=== PATIENT | male | born 2005 | race Caucasian/White ===

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

== ENCOUNTER 2025-02-15 07:08 | Emergency (ER) | payer OTHER, SELFPAY ==
[2025-02-15 07:12] VITALS: BP 145/93; PULSE 91; RESP 16; TEMP 36.8; O2SAT 100
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
[2025-02-15 08:15] VITALS: BP 145/93; PULSE 91; RESP 18; TEMP 36.8; O2SAT 100
--- OUTSIDE RECORDS SUMMARY | 2025-02-15 08:35 | XMS_ITS | Clinical Summary ---
Author Organization [facility] [employer] Address [address] [place] [address] Care Team Providers Care Home Insurance Agent Name Role Phone Unavailable Primary Care Provider Unavailabl e Source Comments [facility] [employer],non-owned Affiliates and Associated Physician Practices is amultiple site organization consisting of ambulatory clinics and hospital sitesin [place], [place], [place] and [place]. This disclosure is being madepursuant to the Care Everywhere program and may not contain all information available regarding this patient. Last updated 18.[facility] [employer] Allergies No known active allergies Medications * Be aware that medications may not be up to date on this document. Alwaysverify current medications with the patient. No known medications Active Problems Problem Noted Date Diagnosed Date Benzodiazepine overdose of undetermined intent 0 12/01/2019 Assessment & Plan (12/03/2019 6:29 PM CDT): Assessment: 14 year old with unclear past psychiatric history hospitalized due to toxic encephalopathy following intentional polysubstance ingestion (alcohol, xanax, marijuana, potentially other) with unclear intent. Patient medically cleared and tolerating diet well. MERRY decided that patient met criteria for inpatient psych. Plan: - Discharge to inpatient psych - Psych facility requested labs: Covid negative. CBC wnl. Assessment & Plan (12/02/2019 11:25 AM CDT): Assessment: 14 year old with unclear past psychiatric history hospitalized due to toxic encephalopathy following intentional polysubstance ingestion (alcohol, xanax, marijuana, potentially other) with unclear intent. Patient medically cleared and tolerating diet well. MERRY decided that patient met criteria for inpatient psych - [facility] in [place], [place]. Plan: - waiting for bed for inpatient psych placement - Psych facility requested labs: Covid negative. CBC wnl. -Obtain further history from family when they arrive. Alcohol intoxication 12/01/2019 Polysubstance overdose 12/01/2019 Marijuana intoxication 12/01/2019 Toxic encephalopathy 11/30/2019 Assessment & Plan (12/03/2019 6:28 PM CDT): Assessment: 14 year old with unclear past psychiatric history hospitalized due to toxic encephalopathy following intentional polysubstance ingestion (alcohol, xanax, marijuana, potentially other) with unclear intent. Patient medically cleared and tolerating diet well. Plan: - Discharge to inpatient psych - Psych facility requested labs: Covid negative. CBC wnl. - PRN zofran and ativan Assessment & Plan (12/02/2019 11:26 AM CDT): Assessment: 14 year old with unclear past psychiatric history hospitalized due to toxic encephalopathy following intentional polysubstance ingestion (alcohol, xanax, marijuana, potentially other) with unclear intent. Patient medically cleared and tolerating diet well. Plan: - waiting for bed for inpatient psych placement - Psych facility requested labs: Covid negative. CBC wnl. - PRN zofran and ativan - Strict I/O - cardio/resp monitoring - q4hr vitals Assessment & Plan (12/01/2019 4:41 PM CDT): Assessment: 14 year old with unclear past psychiatric history hospitalized due to toxic encephalopathy following intentional polysubstance ingestion (alcohol, xanax, marijuana, potentially other) with unclear intent. Patient medically cleared and tolerating diet well. MERRY decided that patient met criteria for inpatient psych - [facility] [place], [place]. Plan: - waiting for bed for inpatient psych placement - Psych facility requested labs: Covid pending. CBC wnl. - PRN zofran and ativan - Strict I/O - cardio/resp monitoring - q4hr vitals -Obtain further history from family when they arrive. Assessment & Plan (11/30/2019 9:16 PM CDT): Assessment: Patient is a 14 year old male who presents with alcohol intoxication and potentially other unknown substances with a ETOH 194 and +UDS of cannabinoids. Patient claims to have taken Xanax, but remaining UDS is negative. Negative for salicylates and tylenol. CMP: remarkable for Chloride of 114, Ca of 8.41. Patient did not respond to narcan. Patient is currently stable and receiving IVF in addition to the bolus in the ED. Patient in need of close monitoring, IVF, and psych consult. Plan: - admit to [facility] team - Dr. Bailey - MIRIAM @100ml/hr - PRN zofran and ativan - Strict I/O - cardio/resp monitoring - q4hr vitals - psych consult in the morning Social History Tobacco Use Types Packs/Day Years Used Date Smoking Tobacco: Every Day Smokeless Tobacco: Current Alcohol Use Standard Drinks/Week Comments Yes 0 (1 standard drink = 0.6 oz pur e alcohol) Sex and Gender Information Value Date Recorded Sex Assigned at Not on file Legal Sex Male 11:00 AM CDT Gender Identity Not on file Sexual Orientation Not on file Last Filed Vital Signs Vital Sign Reading Time Taken Comments Blood Pressure 104/62 12/03/2019 4:10 PM CDT Pulse 56 12/03/2019 4:10 PM CDT Temperature 36.6 C (97.9 F) 12/03/2019 4:10 PM CDT Respiratory Rate 18 12/03/2019 4:10 PM CDT Oxygen Saturation 98% 12/03/2019 4:10 PM CDT Inhaled Oxygen Concentration - - Weight 58.5 kg (128 lb 15 oz) 11/30/2019 1:09 PM CDT Height 170.2 cm (5' 7) 11/30/2019 1:09 PM CDT Body Mass Index 20.19 11/30/2019 1:09 PM CDT Plan of Treatment Health Maintenance Due Date Last Done Comments HIV SCREENING 11/10/2019 HPV VACCINE (1 - Male 3-dose series) 11/10/2019 MENINGOCOCCAL (Group B) VACC INE SHARED DECISION-MAKING (1 of 2 - Standard) 2020 HEPATITIS C SCREENING 11/05/2022 DTAP/TDAP/TD VACCINES (1 - Tdap) 11/10/2023 HEPATITIS B VACCINE (1 of 3 - 19+ 3-dose series) 11/10/2023 DEPRESSION SCREENING 05/27/2024 COVID-19 VACCINE (1 - 2023-2 5 season) 2025 INFLUENZA VACCINE (#1) 2025 ZOSTER VACCINE (1 of 2) 2054 HIB VACCINE Aged Out No longer eligi ble based on patient's age to complete this topic MENINGOCOCCAL GROUPS A/C/Y/W VACCINE Aged Out No longer eligible b ased on patient's age to complete this topic PNEUMOCOCCAL VACCINE Aged Out No long er eligible based on patient's age to complete this topic Insurance MEDICAID - [place] [facility] CIGNA MEDICAID - OUT OF STATE Advance Directives * Full Code (Latest Code Status on File) Date Activated Date Inactivated Comments 11/30/2019 3:36 PM 12/03/2019 6:29 PM
--- OUTSIDE RECORDS SUMMARY | 2025-02-15 08:35 | XMS_ITS | Clinical Summary ---
Author Organization [facility] Address [address] [place] [id number] Care Team Providers Care Sports Lawyer Name Role Phone Eddie Leonardo MD Primary Care Provider Allergies No known active allergies Medications No known medications Social History Tobacco Use Types Packs/Day Years Used Date Smoking Tobacco: Never Smokeless Tobacco: Never Alcohol Use Standard Drinks/Week Comments Not Currently 0 (1 standard drink = 0.6 oz pur e alcohol) Sex and Gender Information Value Date Recorded Sex Assigned at Not on file Legal Sex Male 6:41 PM CDT Gender Identity Not on file Sexual Orientation Not on file Last Filed Vital Signs Vital Sign Reading Time Taken Comments Blood Pressure 100/65 07/09/2019 12:17 AM CUSTOMER SUPPORT ADVISOR Pulse 72 07/09/2019 12:17 AM CUSTOMER SUPPORT ADVISOR Temperature 36.9 C (98.4 F) 07/09/2019 12:17 AM CUSTOMER SUPPORT ADVISOR Respiratory Rate 16 07/09/2019 12:17 AM CUSTOMER SUPPORT ADVISOR Oxygen Saturation 99% 07/09/2019 12:17 AM CUSTOMER SUPPORT ADVISOR Inhaled Oxygen Concentration - - Weight 52.2 kg (115 lb) 07/08/2019 11:08 PM CUSTOMER SUPPORT ADVISOR Height 170.2 cm (5' 7) 07/08/2019 11:08 PM CUSTOMER SUPPORT ADVISOR Body Mass Index 18.01 07/08/2019 11:08 PM CUSTOMER SUPPORT ADVISOR Plan of Treatment Health Maintenance Due Date Last Done Comments Annual Physical 11/10/2007 HPV Vaccines (1 - Male 3-dos e series) 11/10/2019 Meningococcal B Vaccine (1 o f 2 - Standard) 2020 Hepatitis C 2022 DTaP, Tdap and Td Vaccines ( 1 - Tdap) 11/10/2023 Hepatitis B Vaccines (1 of 3 - 19+ 3-dose series) 11/10/2023 COVID-19 Vaccine (1 - 2023-2 5 season) 2025 Meningococcal Vaccine Aged Out No mary luke eligible based on patient's age to complete this topic Pneumococcal Vaccine: Pediat rics (0 to 5 Years) and At-Risk Patients (6 to 49 Years) Aged Out No longer eligible b ased on patient's age to complete this topic RSV Immunizations Under 20 Months Aged Out No longer eligible based on patient's age to complete this topic [facility] Care Teams Sports Lawyer Relationship Specialty Start Date End Date Eddie Leonardo MD [address] [place] [address] PCP - General FAMILY PRACTICE 06/08/19
== END 2025-02-15 08:15 | disposition home or self-care (01) ==
LOC: CHSED 08:05
PROVIDERS: Emergency Provider Family Medicine; PCP Family Medicine
DX: S61.012A Laceration without foreign body of left thumb without damage to nail, initial encounter (principal); S61.011A Laceration without foreign body of right thumb without damage to nail, initial encounter; W45.8XXA Other foreign body or object entering through skin, initial encounter
CPT/HCPCS: 12001; 99282